=== PATIENT | female | born 1970 | race Hispanic/Latino ===

== ENCOUNTER 2019-04-16 12:47 | Outpatient (CLI) | payer OTHER ==
--- NOTE | 2019-04-16 14:13 | Ultrasound Report ---
RIGHT BREAST ULTRASOUND HISTORY: A 6 cm heterogeneous partially circumscribed upper outer mass on the mammogram. COMPARISON: 04/15/2019 mammogram FINDINGS: Sonographic evaluation focused upon the upper outer location of the right breast demonstrat es heterogeneous fibroglandular structures which correlate with the mammographic mass. No spiculation or shadowing. IMPRESSION Benign asymmetric right upper outer parenchyma and no suspicious finding. BIRADS 2: Benign Signer Name: Messi Walters MD Signed: 04/16/2019 2:09 PM Workstation Name: [id number]
== END 2019-04-16 12:48 | disposition home or self-care (01) ==
LOC: SPVWC 12:47
PROVIDERS: ATTEND Surgery
DX: N64.89 Other specified disorders of breast (principal)